=== PATIENT | female | born 1955 | race Caucasian/White ===

== ENCOUNTER 2024-12-30 15:28 | Outpatient (AMB) | payer OTHER, SELFPAY ==
--- OUTSIDE RECORDS SUMMARY | 2024-06-03 06:15 | XMS_ITS ---
Author Organization [facility] Address [address] [place] [address] Care Team Providers Care Money Counter Name Role Phone LAURENT RICKS Primary Care Provider Ge Roberts Unavailable [phone] REASON FOR VISIT 1 week BP Encounters Encounter Location Date Provider Diagnosis [facility] [address] [address] 06/03/2024 Ge Roberts Plan Of Treatment Next Appt Details Provider Name:Sarah Wood, [place] 07/25/2024 11:30:00 AM, [address] [address], [place], [address], Progress Notes * Brittaney WEBEROB:[birth year] (69 yo M)Acc No.[id number]:06/03/2024 Progress Notes Patient: Eneida NANCE Appointment Provider: Betsy Roberts :1955 A ge:68 Y S ex:Male Date:06/03/2024 Phone: Address:[address] [place] [address], [address] [place] [address] Pcp:LAURENT RICKS Subjective: * Chief Complaints: * 1 . 1 week BP. * Medical History: Objective: * Vitals: Assessment: Plan: * Treatment: * Images: * Electronic signature of Remi Roberts PA-C on 12/30/2024 at 03:30 PM EDT Sign off status: Pending * Appointment Provider: Betsy Roberts Date: 1 08/04/2023 Generated for Arthur ernst/Krystin/eTransmitting on: 0 12/30/2024 03:30 PM EDT
--- OUTSIDE RECORDS SUMMARY | 2024-12-30 15:31 | XMS_ITS | Clinical Summary ---
Author Organization [facility] Address [address] [place] [address] Phone Care Team Providers Care Balance Wheel Arm Burnisher Name Role Phone Maykel Lanre Owen MD Primary Care Provider [phone] Allergies Active Allergy Reactions Criticality Noted Date Comments Codeine Low 02/14/2024 Fentanyl Anaphylaxis High 09/22/2015 Morphine Low 09/22/2015 Penicillins 11/16/2015 Reaction not mentioned Medications butalbital-acet aminophen-caffe ine-codeine (FIORICET WITH CODEINE) [id number] mg per capsule Take 1 capsule by mouth every 4 (four) hours. Active DULoxetine (CYMBALTA) [address] capsule Take 1 capsule (60 mg total) by mouth 1 (one) time each day. Active omeprazole (PriLOSEC) [address] capsule Take 1 capsule (20 mg total) by mouth 1 (one) time each day. 6 Active pregabalin (LYRICA) 100 mg capsule Take 1 capsule (100 mg total) by mouth 1 (one) time each day. 4 Active traZODone (DESYREL) 50 mg tablet Take 2 tablets (100 mg total) by mouth at bedtime. 6 Active lisinopriL (PRINIVIL,ZESTR IL) 5 mg tablet Take 2 tablets (10 mg total) by mouth 1 (one) time each day. for 30 days 4 Active guaiFENesin (MUCINEX) 600 mg 12 hr tablet Take 1 tablet (600 mg total) by mouth every 12 (twelve) hours. Do not crush, chew, or split. 60 each 4 05/20/20 25 Active ipratropium (ATROVENT) 0.02 % nebulizer solution Take 2.5 mL (0.5 mg total) by nebulization every 6 (six) hours if needed (wheeze). 75 mL 4 05/20/20 25 Active sucralfate (CARAFATE) 1 gram tablet Take 1 tablet (1 g total) by mouth 4 (four) times a day (before meals and nightly). 120 each 4 05/20/20 25 Active albuterol HFA (ProAir HFA) 90 mcg/actuation inhaler Inhale 2 puffs by mouth every 4 (four) hours if needed for wheezing or shortness of breath. 8.5 g 4 05/20/20 25 Active albuterol 2.5 mg /3 mL (0.083 %) nebulizer solution Take 3 mL (2.5 mg total) by nebulization every 6 (six) hours if needed for wheezing or shortness of breath. 60 each 4 05/20/20 25 Active fluticasone propion-salmete roL (ADVAIR DISKUS) 100-50 mcg/dose diskus inhaler Inhale 1 puff by mouth 2 (two) times a day. Rinse mouth with water after use to reduce aftertaste and incidence of candidiasis. Do not swallow. 1 each 4 05/20/20 25 Active Active Problems Problem Noted Date Diagnosed Date Pneumonia due to infectious organism, unspecified laterality, unspecified part of lung 05/17/2024 Resolved Problems Problem Noted Date Diagnosed Date Resolved Date Acute respiratory failure wi th hypoxia (CMS/HCC V24, CMS/HCC V28) 05/20/2024 05/20/2024 Surgical History Surgery Date Site/Laterality Comments TONSILLECTOMY CHOLECYSTECTOMY BRAIN SURGERY Medical History Medical History Date Comments COPD (chronic obstructive pulmonary disease) (CM S/HCC V24, CMS/HCC V28) Cerebral aneurysm Hypertension Depression Asthma Social History Tobacco Use Types Packs/Day Years Used Date Smoking Tobacco: Never Smokeless Tobacco: Never Interpersonal Safety Answer Date Record ed Physical Abuse 05/19/2024 Verbal Abuse 05/19/2024 Comments Unknown Sex and Gender Information Value Date Recorded Sex Assigned at Not on file Legal Sex Female 2:42 AM EST Gender Identity Not on file Sexual Orientation Not on file Obstetrics History Last Filed Vital Signs Vital Sign [place] Time Taken Comments Blood Pressure 152/101 05/20/2024 7:44 AM EST Pulse 81 05/20/2024 7:44 AM EST Temperature 36.9 C (98.4 F) 05/20/2024 7:44 AM EST Respiratory Rate 16 05/20/2024 7:44 AM EST Oxygen Saturation 95% 05/20/2024 7:44 AM EST Inhaled Oxygen Concentration - - Weight 49.9 kg (110 lb) 05/17/2024 2:45 PM EST Height 149.9 cm (4' 11 ) 05/17/2024 2:45 PM EST Body Mass Index 22.22 05/17/2024 2:45 PM EST Plan of Treatment Health Maintenance Due Date Last Done Comments Breast Cancer Screening 1955 DTaP,Tdap,and Td Vaccines (1 - Tdap) 1976 Pneumococcal Vaccine: 50+ Years (1 of 2 - PCV) 1976 Zoster Vaccines (1 of 2) 12/17/2007 RSV Immunization Adult Patients (1 - Risk 60-74 years 1-dose series) 2017 COVID-19 Vaccine ( - season) 2024 Colorectal Cancer Screening: Colonoscopy 03/16/2024 Hepatitis C Screening 03/16/2024 Lung Cancer Screening (Low Dose CT) 03/16/2024 Medicare Annual Wellness Visit 03/16/2024 Osteoporosis Screening (Bone Density Screening) 03/16/2024 Social Influencers of Health Screening 03/16/2024 Depression Screening 06/09/2024 Influenza Vaccine (#1) 2025 Falls Risk Assessment 05/20/2025 05/20/2024 Hypertension/CHF/CAD Annual BMP Blood Test 11/03/2025 11/03/2024, 05/20/2024, 05/18/2024, Additional history exists Cholesterol Screening (Lipid Panel) 11/03/2029 11/03/2024 HIB Vaccines Aged Out No longer eligi ble based on patient's age to complete this topic HPV Vaccines Aged Out No longer eligi ble based on patient's age to complete this topic Hepatitis A Vaccines Aged Out No long er eligible based on patient's age to complete this topic Hepatitis B Vaccines Aged Out No long er eligible based on patient's age to complete this topic IPV Vaccines Aged Out No longer eligi ble based on patient's age to complete this topic MMR Vaccines Aged Out No longer eligi ble based on patient's age to complete this topic Meningococcal ACWY Vaccine Aged Out N o longer eligible based on patient's age to complete this topic Meningococcal B Vaccine Aged Out No l onger eligible based on patient's age to complete this topic RSV Immunization Patients Under 20 months Aged Out No longer eligible based on patient's age to complete this topic Varicella Vaccines Aged Out No longer eligible based on patient's age to complete this topic Procedures Procedure Name Priority Date/Time Associated Diagnosis Comments MICROALBUMIN CREATININE URINE RATIO Routine 11/03/2024 9:45 AM EDT Essential hypertension, malignant LIPID PANEL WITH REFLEX TO DIRECT LDL Routine 11/03/2024 9:45 AM EDT Essential hypertension, malignant COMPREHENSIVE METABOLIC PANEL Routine 11/03/2024 9:45 AM EDT Essential hypertension, malignant from Last 3 Months Results * Lipid panel with reflex to direct LDL (11/03/2024 9:45 AM EDT) Cholesterol 165 0 - 200 mg/dL LAB CHEMISTRY METHOD 11/03/2024 6:30 PM EDT [facility] Triglycerides 104 0 - 150 mg/dL LAB CHEMISTRY METHOD 11/03/2024 6:30 PM EDT [facility] HDL 52 >=40 mg/dL LAB CHEMISTRY METHOD 11/03/2024 6:30 PM EDT [facility] LDL Calculated 92 0 - 100 mg/dL LAB CHEMISTRY METHOD 11/03/2024 6:30 PM [facility] VLDL Cholesterol Dejon 20.8 mg/dL LAB CHEMISTRY METHOD 11/03/2024 6:30 PM EDT [facility] Non HDL Chol. (LDL+VLDL) 113 <145 mg/dL LAB CHEMISTRY METHOD 11/03/2024 6:30 PM EDT [facility] Chol/HDL Ratio 3.2 0.0 - 4.4 LAB CHEMISTRY METHOD 11/03/2024 6:30 PM EDT [facility] Blood Venous blood specimen / Unknown Venipuncture / Unknown 11/03/2024 9:45 AM EDT 11/03/2024 9:45 AM EDT us Sarah Wood MD LAB BLOOD ORDERABLES Final Resul t Performing Organization Address [facility]/ZIP Co de Phone Number [facility] [address] [place] [address], [place] [phone] * Microalbumin creatinine urine ratio (11/03/2024 9:45 AM EDT) Creatinine, Urine 187.0 mg/dL LAB CHEMISTRY METHOD 11/03/2024 9:28 PM EDT [facility] Microalb, Ur 13.3 0.0 - 29.0 mg/L LAB CHEMISTRY METHOD 11/03/2024 9:28 PM EDT [facility] Microalb/Creat Ratio 7 <30 mg/g creat LAB CHEMISTRY METHOD 11/03/2024 9:28 PM EDT [facility] Urine Urine specimen obtained by clean catch procedure / Unknown Non-blood Collection / Unknown 11/03/2024 9:45 AM EDT 11/03/2024 9:45 AM EDT us Sarah Wood MD LAB URINE ORDERABLES Final Resul t Performing Organization Address [facility]/ZIP Co de Phone Number [facility] [address] [place] [address], [place] [phone] * Comprehensive metabolic panel (11/03/2024 9:45 AM EDT) Sodium 138 133 - 145 mmol/L LAB CHEMISTRY METHOD 11/03/2024 6:30 PM [facility] Potassium 3.7 3.5 - 5.5 mmol/L LAB CHEMISTRY METHOD 11/03/2024 6:30 PM [facility] Chloride 103 96 - 110 mmol/L LAB CHEMISTRY METHOD 11/03/2024 6:30 PM [facility] CO2 29 21 - 32 mmol/L LAB CHEMISTRY METHOD 11/03/2024 6:30 PM [facility] Anion Gap 6 3 - 11 LAB CHEMISTRY METHOD 11/03/2024 6:30 PM [facility] Glucose 98 70 - 100 mg/dL LAB CHEMISTRY METHOD 11/03/2024 6:30 PM [facility] BUN 11 5 - 25 mg/dL LAB CHEMISTRY METHOD 11/03/2024 6:30 PM [facility] Creatinine 0.83 0.50 - 1.10 mg/dL LAB CHEMISTRY METHOD 11/03/2024 6:30 PM [facility] eGFR 78 >=60 mL/min/1. 73m2 LAB CHEMISTRY METHOD 11/03/2024 6:30 PM [facility] Comment:Calculation based on the Chronic Kidney Disease Epidemiology Collaboration (CKD-EPI) equation refit without adjustment for race. BUN/Creatinine Ratio 13.3 LAB CHEMISTRY METHOD 11/03/2024 6:30 PM [facility] Calcium 8.9 8.5 - 10.5 mg/dL LAB CHEMISTRY METHOD 11/03/2024 6:30 PM [facility] AST (SGOT) 15 10 - 42 unit/L LAB CHEMISTRY METHOD 11/03/2024 6:30 PM [facility] ALT (SGPT) 21 10 - 60 unit/L LAB CHEMISTRY METHOD 11/03/2024 6:30 PM [facility] Alkaline Phosphatase 83 42 - 121 unit/L LAB CHEMISTRY METHOD 11/03/2024 6:30 PM EDT [facility] Total Protein 6.7 6.0 - 8.0 g/dL LAB CHEMISTRY METHOD 11/03/2024 6:30 PM EDT [facility] Albumin 4.0 3.2 - 5.0 g/dL LAB CHEMISTRY METHOD 11/03/2024 6:30 PM EDT [facility] Total Bilirubin 0.3 0.0 - 1.4 mg/dL LAB CHEMISTRY METHOD 11/03/2024 6:30 PM EDT [facility] Blood Venous blood specimen / Unknown Venipuncture / Unknown 11/03/2024 9:45 AM EDT 11/03/2024 9:45 AM EDT us Sarah Wood MD LAB BLOOD ORDERABLES Final Resul t [facility] [address] [place] [address], [place] [phone] from Last 3 Months Insurance [place]ICA[place] - [place] [employer] MEDICARE ADVANTAGE MEDICARE MEDICAID OOS RONALDO Advance Directives * Full Code - Default (Latest Code Status on File) Date Activated Date Inactivated Comments 05/17/2024 9:36 PM 05/20/2024 3:57 PM This is ord er is used when code status has not been discussed with the patient, or code status is otherwise unknown/unconfirmed To update the patient's code status, place a code status order. Do not modify or discontinue any currently active code status orders. Care Teams Balance Wheel Arm Burnisher Relationship Specialty Start Date End Date Lanre Brar MD [address] [place] [address] PCP - General Internal Medicine 05/17/24
--- OUTSIDE RECORDS SUMMARY | 2024-12-30 15:31 | XMS_ITS ---
Author Name [facility] Organization Unknown Care Team Organization Name Specialty Phone Email Start Date End [facility] 08/26/2024 025
--- NOTE | 2024-12-30 15:51 | MHC.OFFVIS ---
Intake Visit Reasons: Seizures disorders / Migraine HPI Comments Details: 69 years old right-handed woman with hearing impairment with some congenital etiology who probably suffered from chronic headaches. She said that she used to see a neurologist in [place] and was prescribed Fioricet and Zomig. At some point she moved to [place] and said that in [facility] in [place] she had treatment for cerebral aneurysm and had stenting done. I reviewed her CAT scan of brain for [facility] done in May of 2024 that revealed a right intracavernous carotid stent. There was no sign of any treated or coiled aneurysms. Symptom rodriguez, her main issue was headaches. She said that headaches were happening few times a week and each time was lasting for a day or 2. Pain was in different areas of the head. Review of Systems Const Details: Constitutional:?No fever, chills, fatigue, weight loss, or night sweats. HEENT:?No vision changes, nasal congestion, sore throat. Complain of hearing loss bilaterally Cardiovascular:?No chest pain, palpitations, orthopnea, PND, or leg swelling. Respiratory:?No cough, shortness of breath, wheezing, or hemoptysis. Gastrointestinal:?No nausea, vomiting, abdominal pain, diarrhea, or constipation. Genitourinary:?No dysuria, frequency, incontinence, or hematuria. Musculoskeletal:?No joint pain, stiffness, weakness, or muscle aches. Neurological:?No dizziness, syncope, seizures, numbness, tingling, weakness, tremors, memory loss. Complain of frequent headaches Psychiatric:?No anxiety, depression, mood swings, sleep disturbance, or hallucinations. Endocrine:?No heat/cold intolerance, polydipsia, polyuria, or hair/skin changes. Hematologic/Lymphatic:?No easy bruising, bleeding, or lymphadenopathy. Integumentary (Skin):?No rash, lesions, itching, or color changes. Allergic/Immunologic:?No seasonal allergies, hives, or recurrent infections. Physical Exam Neuro Other: Mental Status: Alert and oriented to person, place, and time. Normal attention. Normal spontaneous speech, fluency, and comprehension. No obvious issues with mood and memory. Affect is appropriate. Cranial Nerves: CN II: Visual call full to confrontation, visual acuity intact. CN III, IV, : Pupils equal, round, reactive to light and accommodation. Extraocular movements are normal. CN V: Facial sensation is normal. CN VII: Facial movements symmetrical. CN VIII: Hearing is bilaterally decreased CN IX, X: Palate elevates symmetrically. CN XI: Shoulder shrug and head turn symmetrical. CN XII: Tongue midline without atrophy or fasciculations. Motor: Deep tendon reflexes are 1+. Plantars are flexor. Coordination: [id number] and [id number] testing normal. No dysmetria. Gait and Station: No obvious gait abnormality. No ataxia or instability. Extrapyramidal: Full facial expressions and blinking. No rigidity. Movements are appropriate with no tremor or abnormality. Speech: Normal; no dysarthria or tremor. Assessment & Plan Assessment & Plan (1) Intracranial carotid stenosis: Code(s): I65.29 - Occlusion and stenosis of unspecified carotid artery Category: Medical Qualifiers: Laterality: right Qualified Code(s): I65.21 - Occlusion and stenosis of right carotid artery (2) Migraine without aura: Code(s): G43.009 - Migraine without aura, not intractable, without status migrainosus Category: Medical Qualifiers: Status migrainosus presence: without status migrainosus Intractability: not intractable Qualified Code(s): G43.009 - Migraine without aura, not intractable, without status migrainosus (3) Deafness: Code(s): H91.90 - Unspecified hearing loss, unspecified ear Category: Medical Qualifiers: Laterality: bilateral Qualified Code(s): H91.93 - Unspecified hearing loss, bilateral Plan Impression: 1. Reported history of cerebral aneurysm though I do not have any records to corroborate her story and CAT scan of brain done in May of 2024 at [facility] did not reveal any uncoiled or coiled aneurysm. 2. 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 Again she did not have records and she could not tell me what prompted this treatment. 3. Chronic migraine without aura and 4. Hearing impairment probably from some congenital etiology Recommendations: 1. Baby aspirin daily 2. Topiramate 25mg one at bedtime for headaches Medications: New topiramate 25 mg PO DAILY 90 tabs 0RF Coding Level of Care Code Tele New Pt Level 4 (78474) Diagnoses Stenosis of intracranial portions of right internal carotid artery I65.21 Laterality: right Migraine without aura and without status migrainosus, not intractable G43.009 Status migrainosus presence: without status migrainosus Intractability: not intractable Bilateral deafness H91.93 Laterality: bilateral
== END 2024-12-30 16:19 | disposition home or self-care (01) ==
LOC: HO.HSM 15:29
PROVIDERS: PCP Hospitalist; Visit Provider Psychiatry & Neurology Neurology
DX: I65.21 Occlusion and stenosis of right carotid artery (principal); G43.009 Migraine without aura, not intractable, without status migrainosus; H91.93 Unspecified hearing loss, bilateral
CPT/HCPCS: 99204

== ENCOUNTER → 2024-12-30 15:28 | Outpatient (BNVA) | payer OTHER, SELFPAY | PROVIDERS: PCP Hospitalist; Visit Provider Psychiatry & Neurology Neurology | DX: I65.21 Occlusion and stenosis of right carotid artery (principal); G43.709 Chronic migraine without aura, not intractable, without status migrainosus; H91.93 Unspecified hearing loss, bilateral; Z98.61 Coronary angioplasty status | CPT/HCPCS: 99202 ==

== ENCOUNTER 2025-01-27 07:48 | Outpatient (REF) | payer OTHER, SELFPAY ==
--- OUTSIDE RECORDS SUMMARY | 2024-06-03 06:15 | XMS_ITS ---
Author Organization [facility] Address [address] [place] [id number] Care Team Providers Care Scientific Glass Blower Name Role Phone LAURENT RICKS Primary Care Provider Ge Roberts Unavailable [phone] REASON FOR VISIT 1 week BP Encounters Encounter Location Date Provider Diagnosis [facility] [address] [address] 06/03/2024 Ge Roberts Plan Of Treatment Next Appt Details Provider Name:Sarah Wood, [place] 07/25/2024 11:30:00 AM, [address] [address], [place], [address], Progress Notes * Brittaney WEBEROB:[birth year] (69 yo M)Acc No.[id number]:06/03/2024 Progress Notes Patient: Eneida NANCE Appointment Provider: Betsy Roberts :1955 A ge:68 Y S ex:Male Date:06/03/2024 Phone: Address:[address] [place] [address], [address] [place] [address] Pcp:LAURENT RICKS Subjective: * Chief Complaints: * 1 . 1 week BP. * Medical History: Objective: * Vitals: Assessment: Plan: * Treatment: * Images: * Electronic signature of Remi Roberts PA-C on 01/27/2025 at 07:53 AM EDT Sign off status: Pending * Appointment Provider: Betsy Roberts Date: 1 08/04/2023 Generated for Arthur ernst/Krystin/eTransmitting on: 0 01/27/2025 07:53 AM EDT
--- NOTE | ~2025-01-27 | CT_ITS ---
CLINICAL HISTORY: I67.1 - Cerebral aneurysm, nonruptured CT Head without contrast. CT angiography head and neck with contrast. 3D Postprocessing. Comparison: None provided Findings: HEAD CT: No intra-axial mass, midline shift, hydrocephalus, or acute hemorrhage. Pojr-kq-nzqgfrop cerebral hemispheric white matter hypodensities likely due to age-related small-vessel ischemic changes. Small left maxillary sinus polyp/retention cyst. Chronic anteroinferior nasal septal defect. The orbits are within normal limits. No skull fracture. HEAD AND NECK CTA: Patent stent at level of cavernous portion of the right ICA. Tortuous bilateral cervical ICS. Mild partial ectasia of the right cervical ICA. Relatively attenuated appearance of the left PICA may be congenital or due to age-indeterminate stenosis. Correlate clinically. Otherwise no evidence of significant arterial stenosis, aneurysm, AVM or dissection. atent dural venous sinuses. No evidence of abnormal intracranial enhancement. The visualized thyroid gland is unremarkable. No cervical mass or fluid collection. 11 mm cyst versus/bulla in the right lung apex. Spinal degenerative changes. No acute fracture. IMPRESSION: 1. Unremarkable head CT. 2. Patent stent at level of cavernous portion of the right ICA. Tortuous bilateral cervical ICS. Mild partial ectasia of the right cervical ICA. Relatively attenuated appearance of the left PICA may be congenital or due to age-indeterminate stenosis. Correlate clinically. Otherwise no evidence of significant arterial stenosis, aneurysm, AVM or dissection. This document has been electronically signed by: Yeimi Bazan MD on 01/28/2025 13:32:45
--- OUTSIDE RECORDS SUMMARY | 2025-01-27 07:54 | XMS_ITS | Clinical Summary ---
Author Organization [facility] Address [address] [place] [address] Phone Care Team Providers Care Taker Off Braker Machine Name Role Phone Maykel Lanre Owen MD Primary Care Provider [phone] Allergies Active Allergy Reactions Criticality Noted Date Comments Codeine Low 02/14/2024 Fentanyl Anaphylaxis High 09/22/2015 Morphine Low 09/22/2015 Penicillins 11/16/2015 Reaction not mentioned Medications butalbital-acet aminophen-caffe ine-codeine (FIORICET WITH CODEINE) 16-784-42-30 mg per capsule Take 1 capsule by [...] LAB CHEMISTRY METHOD 11/03/2024 6:30 PM EDT [facility] Triglycerides 104 0 - 150 mg/dL LAB CHEMISTRY METHOD 11/03/2024 6:30 PM EDT [facility] HDL 52 >=40 mg/dL LAB CHEMISTRY METHOD 11/03/2024 6:30 PM EDT [facility] LDL Calculated 92 0 - 100 mg/dL LAB CHEMISTRY METHOD 11/03/2024 6:30 PM [facility] VLDL Cholesterol Dejon 20.8 mg/dL LAB CHEMISTRY METHOD 11/03/2024 6:30 PM EDT [facility] Non HDL Chol. (LDL+VLDL) 113 <145 mg/dL LAB CHEMISTRY METHOD 11/03/2024 6:30 PM EDT [facility] Chol/HDL Ratio 3.2 0.0 - 4.4 LAB CHEMISTRY METHOD 11/03/2024 6:30 PM EDT [facility] Blood Venous blood specimen / Unknown Venipuncture / Unknown 11/03/2024 9:45 AM EDT 11/03/2024 9:45 AM EDT us Sarah Wood MD LAB BLOOD ORDERABLES Final Resul t Performing Organization Address [facility]/ZIP Co de Phone Number [facility] [address] [place] [address], [place] [phone] * Microalbumin creatinine urine ratio (11/03/2024 9:45 AM EDT) Creatinine, Urine 187.0 mg/dL LAB CHEMISTRY METHOD 11/03/2024 9:28 PM EDT [facility] Microalb, Ur 13.3 0.0 - 29.0 mg/L LAB CHEMISTRY METHOD 11/03/2024 9:28 PM EDT [facility] Microalb/Creat Ratio 7 <30 mg/g creat LAB CHEMISTRY METHOD 11/03/2024 9:28 PM EDT [facility] Urine Urine specimen obtained by clean catch procedure / Unknown Non-blood Collection / Unknown 11/03/2024 9:45 AM EDT 11/03/2024 9:45 AM EDT us Sarah Wood MD LAB URINE ORDERABLES Final Resul t Performing Organization Address [facility]/ZIP Co de Phone Number [facility] [address] [place] [address], [place] [phone] * Comprehensive metabolic panel (11/03/2024 9:45 AM EDT) Sodium 138 133 - 145 mmol/L LAB CHEMISTRY METHOD 11/03/2024 6:30 PM [facility] Potassium 3.7 3.5 - 5.5 mmol/L LAB CHEMISTRY METHOD 11/03/2024 6:30 PM [facility] Chloride 103 96 - 110 mmol/L LAB CHEMISTRY METHOD 11/03/2024 6:30 PM [facility] CO2 29 21 - 32 mmol/L LAB CHEMISTRY METHOD 11/03/2024 6:30 PM [facility] Anion Gap 6 3 - 11 LAB CHEMISTRY METHOD 11/03/2024 6:30 PM [facility] Glucose 98 70 - 100 mg/dL LAB CHEMISTRY METHOD 11/03/2024 6:30 PM [facility] BUN 11 5 - 25 mg/dL LAB CHEMISTRY METHOD 11/03/2024 6:30 PM [facility] Creatinine 0.83 0.50 - 1.10 mg/dL LAB CHEMISTRY METHOD 11/03/2024 6:30 PM [facility] eGFR 78 >=60 mL/min/1. 73m2 LAB CHEMISTRY METHOD 11/03/2024 6:30 PM [facility] Comment:Calculation based on the Chronic Kidney Disease Epidemiology Collaboration (CKD-EPI) equation refit without adjustment for race. BUN/Creatinine Ratio 13.3 LAB CHEMISTRY METHOD 11/03/2024 6:30 PM [facility] Calcium 8.9 8.5 - 10.5 mg/dL LAB CHEMISTRY METHOD 11/03/2024 6:30 PM [facility] AST (SGOT) 15 10 - 42 unit/L LAB CHEMISTRY METHOD 11/03/2024 6:30 PM [facility] ALT (SGPT) 21 10 - 60 unit/L LAB CHEMISTRY METHOD 11/03/2024 6:30 PM [facility] Alkaline Phosphatase 83 42 - 121 unit/L LAB CHEMISTRY METHOD 11/03/2024 6:30 PM EDT [facility] Total Protein 6.7 6.0 - 8.0 g/dL LAB CHEMISTRY METHOD 11/03/2024 6:30 PM EDT [facility] Albumin 4.0 3.2 - 5.0 g/dL LAB CHEMISTRY METHOD 11/03/2024 6:30 PM EDT [facility] Total Bilirubin 0.3 0.0 - 1.4 mg/dL LAB CHEMISTRY METHOD 11/03/2024 6:30 PM EDT [facility] Blood Venous blood specimen / Unknown Venipuncture / Unknown 11/03/2024 9:45 AM EDT 11/03/2024 9:45 AM EDT us Sraah Wood MD LAB BLOOD ORDERABLES Final Resul t [facility] [address] [place] [address], [place] [phone] from Last 3 Months Insurance MEDICAID - [...] currently active code status orders. Care Teams Taker Off Braker Machine Relationship Specialty Start Date End Date Lanre Brar MD [address] [place] [address] PCP - General Internal Medicine 05/17/24
[2025-01-27] MEDS: iohexoL 350 MG/ML 100 ML INFUS..BTL IV (09:20)
[2025-01-28 11:44] LABS: Creatinine POC 0.7 mg/dL (0.5-1.4); GFR POC > 60
== END 2025-01-27 07:49 | disposition home or self-care (01) ==
LOC: HO.CT 07:48
PROVIDERS: PCP Hospitalist; Visit Provider Psychiatry & Neurology Neurology
DX: I67.1 Cerebral aneurysm, nonruptured (principal)
CPT/HCPCS: 70496; 70498; 82565; Q9967

== ENCOUNTER → 2025-01-27 07:50 | Outpatient (BNV) | payer OTHER, SELFPAY | PROVIDERS: PCP Hospitalist; Visit Provider Radiology Diagnostic Radiology | DX: I67.1 Cerebral aneurysm, nonruptured (principal) | CPT/HCPCS: 70496; 70498 ==

== ENCOUNTER 2025-02-03 12:52 | Outpatient (AMB) | payer OTHER, SELFPAY ==
--- OUTSIDE RECORDS SUMMARY | 2024-06-03 06:15 | XMS_ITS ---
Author Organization [facility] Address [address] [place] [phone] Care Team Providers Care Donor Support Technician Name Role Phone LAURENT RICKS Primary Care Provider Ge Roberts Unavailable [phone] REASON FOR VISIT 1 week BP Encounters Encounter Location Date Provider Diagnosis [facility] [address] [address] 06/03/2024 Ge Roberts Plan Of Treatment Next Appt Details Provider Name:Sarah Wood, [place] 07/25/2024 11:30:00 AM, [address] [address], [place], [address], Progress Notes * Brittaney WEBEROB:[birth year] (69 yo M)Acc No.[id number]:06/03/2024 Progress Notes Patient: Eneida NANCE Appointment Provider: Betsy Roberts :1955 A ge:68 Y S ex:Male Date:06/03/2024 Phone: Address:[address] [place] [address], [address] [place] [address] Pcp:LAURENT RICKS Subjective: * Chief Complaints: * 1 . 1 week BP. * Medical History: Objective: * Vitals: Assessment: Plan: * Treatment: * Images: * Electronic signature of Remi Roberts PA-C on 02/03/2025 at 01:26 PM EDT Sign off status: Pending * Appointment Provider: Betsy Roberts Date: 1 08/04/2023 Generated for Arthur ernst/Krystin/eTransmitting on: 0 02/03/2025 01:26 PM EDT
--- NOTE | 2025-02-03 13:00 | MHC.OFFVIS ---
Intake Visit Reasons: 4 weeks Allergies No Known Allergies Allergy (Verified 01/27/25 07:10) HPI Comments Details: 69 years old right-handed woman with hearing impairment with some congenital etiology who probably suffered from chronic headaches. She said that she used to see a neurologist in [place] and was prescribed Fioricet and Zomig. At some point she moved to [place] and said that in [facility] in [place] she had treatment for cerebral aneurysm and had stenting done. I reviewed her CAT scan of brain for [facility] done in May of 2024 that revealed a right intracavernous carotid stent. There was no sign of any treated or coiled aneurysms. Symptom rodriguez, her main issue was headaches. She said that headaches were happening few times a week and each time was lasting for a day or 2. Pain was in different areas of the head. She is presenting with headaches. She is currently managing her condition with Paramide, which reduces the severity of her headaches over time but does not prevent them later in the day. The headaches are associated with neck pain and worsened by cooler weather. Her history includes migraines and difficulties in understanding the origin of her discomfort, whether it is related to her neck or another condition. Her previous attempts to use medications like Imitrex and Botox have been unsuccessful, and she expresses a desire to try medications such as Zomig, although insurance restrictions limit her use. The patient further inquired about non-addictive management options for her headaches. Additionally, she displays an issue related to stent placement and aspirin allergy, complicating her medication regimen to prevent any potential complications. [facility] Medical History (Updated 02/03/25 @ 13:23 by Lanre Novoa MD) Seizure disorder Migraine without aura Review of Systems Const Details: - Neurologic: Reports persistent headaches, despite medication. Denies waking headaches. - Musculoskeletal: Reports neck pain. - Allergic/Immunologic: Reports a gastric allergy to aspirin. Physical Exam Neuro Other: Mental Status: Alert and oriented to person, place, and time. Normal attention. Normal spontaneous speech, fluency, and comprehension. No obvious issues with mood and memory. Affect is appropriate. Cranial Nerves: CN II: Visual call full to confrontation, visual acuity intact. CN III, IV, : Pupils equal, round, reactive to light and accommodation. Extraocular movements are normal. CN V: Facial sensation is normal. CN VII: Facial movements symmetrical. CN VIII: Hearing intact to bedside conversation is normal. CN IX, X: Palate elevates symmetrically. CN XI: Shoulder shrug and head turn symmetrical. CN XII: Tongue midline without atrophy or fasciculations. Extrapyramidal: Full facial expressions and blinking. No rigidity. Movements are appropriate with no tremor or abnormality. Speech: Normal; no dysarthria or tremor. Assessment & Plan Assessment & Plan (1) Migraine without aura: Code(s): G43.009 - Migraine without aura, not intractable, without status migrainosus Category: Medical Qualifiers: Status migrainosus presence: without status migrainosus Intractability: not intractable Qualified Code(s): G43.009 - Migraine without aura, not intractable, without status migrainosus Plan: The conversation included a detailed review of the treatment options and adjustments for headache management. We discussed the risks of certain medication types, particularly those that are potentially addictive.The necessity of baby aspirin in light of her stent placement was highlighted, suggesting a reduced dosage due to stomach sensitivities. The risks and intolerance to aspirin were further addressed, emphasizing careful management of her treatment plan in light of this allergy. (2) Intracranial carotid stenosis: Comment: [place] [facility] [place]: R intracavernous ICA stent, otherwise OK Code(s): I65.29 - Occlusion and stenosis of unspecified carotid artery Category: Medical Qualifiers: Laterality: right Qualified Code(s): I65.21 - Occlusion and stenosis of right carotid artery (3) Cervical spondyloarthritis: Code(s): M47.812 - Spondylosis without myelopathy or radiculopathy, cervical region Category: Medical Plan Impression: 1. 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 3. Chronic migraine without aura and 4. Hearing impairment probably from some congenital etiology Recommendations: 1. 1/2 baby aspirin daily 2. Topiramate 25mg bid c: Zomig PRN Medications: New zolmitriptan (Zomig) 5 mg orally one a day as needed PRN; do not exceed 2 doses per 24 hrs 10 tabs 5RF migraine headache 30 days Changed From topiramate 25 mg PO DAILY 90 tabs 0RF To topiramate 50 mg (2 x 25 mg) PO DAILY 180 tabs 0RF Coding Level of Care Code Est Pt Level 4 (80575) Diagnoses Migraine without aura and without status migrainosus, not intractable G43.009 Status migrainosus presence: without status migrainosus Intractability: not intractable Stenosis of intracranial portions of right internal carotid artery I65.21 Laterality: right Cervical spondyloarthritis M47.812
--- OUTSIDE RECORDS SUMMARY | 2025-02-03 13:26 | XMS_ITS | Clinical Summary ---
Author Organization [facility] Address [address] [place] [address] Phone Care Team Providers Care Fork Operator Name Role Phone Maykel Lanre Owen MD Primary Care Provider [phone] Allergies Active Allergy Reactions Criticality Noted Date Comments Codeine Low 02/14/2024 Fentanyl Anaphylaxis High 09/22/2015 Morphine Low 09/22/2015 Penicillins 11/16/2015 Reaction not mentioned Medications butalbital-acet aminophen-caffe ine-codeine (FIORICET WITH CODEINE) 14-724-37-30 mg per capsule Take 1 capsule by [...] LAB CHEMISTRY METHOD 11/03/2024 6:30 PM EDT [facility] Triglycerides 104 0 - 150 mg/dL LAB CHEMISTRY METHOD 11/03/2024 6:30 PM EDT [facility] HDL 52 >=40 mg/dL LAB CHEMISTRY METHOD 11/03/2024 6:30 PM EDT [facility] LDL Calculated 92 0 - 100 mg/dL LAB CHEMISTRY METHOD 11/03/2024 6:30 PM [facility] VLDL Cholesterol Dejon 20.8 mg/dL LAB CHEMISTRY METHOD 11/03/2024 6:30 PM EDT [facility] Non HDL Chol. (LDL+VLDL) 113 <145 mg/dL LAB CHEMISTRY METHOD 11/03/2024 6:30 PM EDT [facility] Chol/HDL Ratio 3.2 0.0 - 4.4 LAB CHEMISTRY METHOD 11/03/2024 6:30 PM EDT [facility] Blood Venous blood specimen / Unknown Venipuncture / Unknown 11/03/2024 9:45 AM EDT 11/03/2024 9:45 AM EDT us Sarah Wood MD LAB BLOOD ORDERABLES Final Resul t Performing Organization Address [facility]/ZIP Co de Phone Number [facility] [address] [place] [address], [place] [phone] * Microalbumin creatinine urine ratio (11/03/2024 9:45 AM EDT) Creatinine, Urine 187.0 mg/dL LAB CHEMISTRY METHOD 11/03/2024 9:28 PM EDT [facility] Microalb, Ur 13.3 0.0 - 29.0 mg/L LAB CHEMISTRY METHOD 11/03/2024 9:28 PM EDT [facility] Microalb/Creat Ratio 7 <30 mg/g creat LAB CHEMISTRY METHOD 11/03/2024 9:28 PM EDT [facility] Urine Urine specimen obtained by clean catch procedure / Unknown Non-blood Collection / Unknown 11/03/2024 9:45 AM EDT 11/03/2024 9:45 AM EDT us Sarah Wood MD LAB URINE ORDERABLES Final Resul t Performing Organization Address [facility]/ZIP Co de Phone Number [facility] [address] [place] [address], [place] [phone] * Comprehensive metabolic panel (11/03/2024 9:45 AM [...] LAB CHEMISTRY METHOD 11/03/2024 6:30 PM EDT [facility] Total Protein 6.7 6.0 - 8.0 g/dL LAB CHEMISTRY METHOD 11/03/2024 6:30 PM EDT [facility] Albumin 4.0 3.2 - 5.0 g/dL LAB CHEMISTRY METHOD 11/03/2024 6:30 PM EDT [facility] Total Bilirubin 0.3 0.0 - 1.4 mg/dL LAB CHEMISTRY METHOD 11/03/2024 6:30 PM EDT [facility] Blood Venous blood specimen / Unknown Venipuncture / Unknown 11/03/2024 9:45 AM EDT 11/03/2024 9:45 AM EDT us Sarah Wood MD LAB BLOOD ORDERABLES Final Resul t [facility] [address] [place] [address], [place] [phone] from Last 3 Months Insurance MEDICAID - [...] currently active code status orders. Care Teams Fork Operator Relationship Specialty Start Date End Date Lanre Brar MD [address] [place] [address] PCP - General Internal Medicine 05/17/24
--- OUTSIDE RECORDS SUMMARY | 2025-02-03 13:27 | XMS_ITS | Patient Health Record ---
Author Organization [facility] Address 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 Phone LAURENT RICKS Primary Care Provider Sarah Wood Unavailable [phone] Ge Roberts Unavailable [phone] Allergies Allergen (clinical drug ingredient) Drug/Non Drug Allergy documented on EMR Reaction Allergy Type Onset Date Status codeine Codeine Unknown Drug Allergy Active fentanyl Fentanyl Unknown Drug Allergy Active morphine Morphine Unknown Drug Allergy Active Reason For Referral Reason Please evaluate and treat Diagnosis 1 Fibromyalgia (M79.7) Diagnosis 2 Other chronic pain ( G89.29) Referral Organization [facility] Referring Provider First Name Sarah Referring Provider Last Name Nina Referring Provider Speciality Internal M edicine Referred Provider Specialty Pain Medicin e General Notes Referral faxed to [facility]. Please evaluate and treat.Carlotta Kayla 05/13/2024 04:38:57 PM > Referral Priority Routine Reason please evaluate and treat Diagnosis 1 Chronic obstructive pulmonary disease, unspecified (J44.9) Referral Organization [facility] Referring Provider First Name Ge Referring Provider Last Name Alejandra Referred Provider Specialty Pulmonology General Notes Referral faxed to [facility]. Please contact the patient to schedule.Carlotta Kayla 06/04/2024 08:18:59 AM > Referral Priority Routine Reason seizure disorder and migraines Please evaluate and treat Diagnosis 1 Aneurysm of vertebra l artery (I72.6) Referral Organization [facility] Referring Provider First Name Sarah Referring Provider Last Name Nina Referring Provider Speciality Internal M edicine Referred Provider Specialty Neurology General Notes Appointment set on 3:[address] 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 Referring Provider First Name Sarah Referring Provider Last Name Nina Referring Provider Speciality Internal M edicine Referred Provider Specialty Pain Medicin e General Notes Please call the yayo ent to schedule the appointment, [facility] . Please contact them at [phone], Sheba Bianchi 11/11/2024 04:32:17 PM > Referral Priority Routine Medications Medication SIG (Take, Route, Frequency, Duration) Notes Start Date End Date Status Lisinopril 20 MG TAKE 1 TABLET BY MOUTH EVERY DAY FOR 30 DAYS; Duration: 90 Active Omeprazole 40 MG TAKE 1 CAPSULE 1/2 TO 1 HOUR BEFORE MORNING MEAL ORALLY ONCE A DAY X 30 DAYS; Duration: 90 Active Atorvastatin Calcium 40 MG TAKE 1 TABLET BY MOUTH EVERY DAY FOR 30 DAYS; Duration: 90 Active Nebulizer - as directed DX: J44.9; Duration: 30 days 06/18/2024 Active oxyCODONE-Acetaminoph en 5-325 MG 1 tablet as needed Orally every 8 hrs; Duration: 5 days As needed Partial Fill upon Patient Request 04/28/2024 Not-Taking DULoxetine HCl 60 MG 1 capsule Orally Once a day; Duration: 90 days 04/28/2024 Active Claritin 10 MG 1 tablet Orally Once a day; Duration: 30 days Active Pregabalin 150 MG TAKE 1 CAPSULE BY MOUTH EVERY DAY FOR 30 DAYS; Duration: 30 10/08/2024 Active Fluticasone Propionate 50 MCG/ACT 1 spray in each nostril Nasally Once a day; Duration: 90 days Active Benzonatate 100 MG 1 capsule as needed Orally Three times a day; Duration: 7 days 08/05/2024 Active oxyCODONE-Acetaminoph en 5-325 MG 1 tablet as needed Orally 3 times a day; Duration: 5 days Partial Fill upon Patient Request 11/08/2024 Active traZODone HCl 100 MG TAKE 1 TABLET BY MOUTH EVERY DAY AT BEDTIME; Duration: 90 Active Albuterol Sulfate HFA 108 (90 Base) MCG/ACT INHALE 1 PUFF INTO THE LUNGS EVERY 4 HOURS NEEDED FOR 30 DAYS; Duration: 30 Active Problems Problem Type SNOMED Code ICD Code Onset Dates Problem Status W/U Status Risk Notes Problem Chronic pain (15067462) Other chronic pain (G89.29) Active confirmed Problem Chronic obstructive pulmonary disease (42364643) Chronic obstructive pulmonary disease, unspecified (J44.9) Active confirmed Problem CSG - Chronic superficial gastritis (760702267) Chronic superficial gastritis without bleeding (K29.30) Active confirmed Problem Thoracic spondylosis without myelopathy (714508611) Other spondylosis, thoracolumbar region (M47.895) Active confirmed Problem Fibromyalgia (514389773) Fibromyalgia (M79.7) Active confirmed Problem Vertebral artery aneurysm (736724429) Aneurysm of vertebral artery (I72.6) Active confirmed Problem Essential hypertension (26136176) Essential hypertension (I10) Active confirmed Problem Tobacco dependence (21483189) Tobacco dependence (F17.200) Active confirmed Problem Posttraumatic stress disorder (18833917) PTSD (post-traumatic stress disorder) (F43.10) Active confirmed Vital Signs Heart Rate 86 /min 11/08/2024 Temperature 96.8 degrees Fahrenheit 11/08/2024 Oximetry 97 % 11/08/2024 Blood pressure diastolic 86 mm Hg 11/08/2024 Height 4'10'' in 11/08/2024 Blood pressure systolic 120 mm Hg 11/08/2024 Weight 130.8 lbs 11/08/2024 BMI 27.33 kg/m2 11/08/2024 Encounters Encounter Location Date Provider Diagnosis [address] [address] [facility] [address] [address] [facility] Annual physical exam Z00.00 ; Fibromyalgia M79.7 ; Chronic depression F32.A ; PTSD (post-traumatic stress disorder) F43.10 ; Other chronic pain G89.29 ; Low back pain, unspecified M54.50 ; Tobacco dependence F17.200 ; Pain, joint, hip, left M25.552 and Essential hypertension I10 [address] [address] 05/25/2024 Ge Roberts Chronic obstructive pulmonary disease, unspecified J44.9 ; Hospital discharge follow-up Z09 ; Pneumonia, unspecified organism J18.9 ; Essential hypertension I10 ; Fibromyalgia M79.7 ; Other chronic pain G89.29 and Chronic superficial gastritis without bleeding K29.30 [facility] [address] [place] [address] 06/10/2024 [place] Fibromyalgia M79.7 ; Essential hypertension I10 ; Chronic depression F32.A and Tobacco dependence F17.[address] [place] [address] 11/08/2024 [place] Aneurysm of vertebra l artery I72.6 ; Muscle spasm of back M62.830 and Other spondylosis, thoracolumbar region M47.[address] [place] [address] 04/16/2024 [place] [facility] [address] [place] [address] 04/28/2024 [place] Fibromyalgia M79.[address] [place] [address] 05/26/[address] [place] [address] 06/04/2024 [facility] Essential hypertensi on I10 [facility] [address] [place] [address] 06/14/[address] [place] [address] 06/18/[address] [place] [address] 06/29/[address] [place] [address] 08/05/2024 [facility] Tobacco dependence F17.[address] [place] [address] 09/10/[address] [place] [address] 10/14/[address] [place] [address] 10/19/[address] [place] [address] 11/02/[address] [place] [address] 11/08/2024 [facility] [address] [place] [address] 11/10/2024 [facility] Nina [address] [place] [address] 11/10/2024 Sarah Loren Assessments Encounter Date Diagnosis (ICD Code) Assessment Notes Treatment Notes Treatment Clinical Notes Section Notes 04/28/2024 Fibromyalgia (ICD-10 - M79.7) 68-year-old lady with history of hypertension hyperlipidemia not on any medications tobacco abuse osteoporosis brain aneurysm chronic back pain is here today for a new patient visit. Plan is as following Hypertension uncontrolled and elevated, patient reports severe left hip pain and back pain most likely contributing to elevated blood pressure and she is also out of medication and is not taking any of her meds. We will start back lisinopril 5 mg daily we will recheck in 1 week and adjust medication accordingly. Patient does not remember what she was taking in the past for her blood pressure control. We will get a basic metabolic panel avoid NSAID therapy as patient is taking a lot of ibuprofen for back pain Hyperlipidemia obtain a lipid profile Fall and left hip pain on exam severe spasms and difficulty flexing the left hip restricted range of motion. Will order an x-ray of the left hip along with the pelvis, pain control with Percocet will give her total prescription of 15 tablets 1 tablet every 8 hours. Tizanidine 2 mg twice a day for spasms patient was also taking Cymbalta and Lyrica in the past which will be renewed Fibromyalgia patient was previously taking Lyrica milligrams daily and also Cymbalta will give her new prescriptions History of osteoporosis we will check vitamin D level and basic CBC she will need screening testing Depression she is feels very frustrated and depressed as she has no medication and no follow-up care. She was taking trazodone 100 mg at night which will be renewed, on her next visit we will obtain an EKG for QTC measurement Seizure disorder patient reports previously she was on medication however that was stopped after her brain aneurysm surgery in 2020 Chronic back pain we will obtain imaging from [facility] as patient states that her previous MRI was done at [facility]. We have discussed with the patient if this is a chronic failed back syndrome she will need a referral to pain clinic as we would not be prescribing long-term opiates Tobacco dependence smoking cessation counseling was done patient was offered Chantix she agreed and will take the prescription. Preventive care measures will be all addressed on the next visit. 04/28/2024 Annual physical exam (ICD-10 - Z00.00) 68-year-old lady with history of hypertension hyperlipidemia not on any medications tobacco abuse osteoporosis brain aneurysm chronic back pain is here today for a new patient visit. Plan is as following Hypertension uncontrolled and elevated, patient reports severe left hip pain and back pain most likely contributing to elevated blood pressure and she is also out of medication and is not taking any of her meds. We will start back lisinopril 5 mg daily we will recheck in 1 week and adjust medication accordingly. Patient does not remember what she was taking in the past for her blood pressure control. We will get a basic metabolic panel avoid NSAID therapy as patient is taking a lot of ibuprofen for back pain Hyperlipidemia obtain a lipid profile Fall and left hip pain on exam severe spasms and difficulty flexing the left hip restricted range of motion. Will order an x-ray of the left hip along with the pelvis, pain control with Percocet will give her total prescription of 15 tablets 1 tablet every 8 hours. Tizanidine 2 mg twice a day for spasms patient was also taking Cymbalta and Lyrica in the past which will be renewed Fibromyalgia patient was previously taking Lyrica milligrams daily and also Cymbalta will give her new prescriptions History of osteoporosis we will check vitamin D level and basic CBC she will need screening testing Depression she is feels very frustrated and depressed as she has no medication and no follow-up care. She was taking trazodone 100 mg at night which will be renewed, on her next visit we will obtain an EKG for QTC measurement Seizure disorder patient reports previously she was on medication however that was stopped after her brain aneurysm surgery in 2020 Chronic back pain we will obtain imaging from [facility] as patient states that her previous MRI was done at [facility]. We have discussed with the patient if this is a chronic failed back syndrome she will need a referral to pain clinic as we would not be prescribing long-term opiates Tobacco dependence smoking cessation counseling was done patient was offered Chantix she agreed and will take the prescription. Preventive care measures will be all addressed on the next visit. 04/28/2024 Fibromyalgia (ICD-10 - M79.7) 05/25/2024 Chronic obstructive pulmonary disease, unspecified (ICD-10 - J44.9) nEeida is a 68-year-old lady has recently moved back to [place] from [place], COPD, she carries a history of brain aneurysm status post stenting in [address] [place] [address] Wilson at [facility], seizure disorder not on any medication for fibromyalgia, PTSD, tobacco dependence, cervical and valvular cancer, hypertension hyperlipidemia who is here today Hospital follow-up. Plan as follows COPD Pneumonia - She is still currently on Z-Darci, prednisone 10 mg daily and she is on albuterol as needed, nebulizing solution as needed, She is also on a combination LABA/ICS. physical examination is unremarkable. Oxygen is 100s% and lungs are clear to auscultation bilateral with good air movements. Continue on the same regimen. I have also ordered x-ray to ensure resolution. She has quit smoking it has been 2 months now. Referred patient to pulmonary Hypertension - Blood pressure is elevated in the office today given 2 separate readings. During previous visit she was started on lisinopril 10 mg. Could also be elevated due to prednisone though I have increased lisinopril to 20 mg Based on comparison with blood pressure Measurements at the hospital as it was also elevated. Advised on reducing salt intake. Increase hydration and exercise. Will check blood pressure in 1 week Off note, GFR was taken at the hospital it was 94 and creatinine of 0.71. No concern. Fibromyalgia - She is currently on pregabalin 100 mg. She states that she has not noticed any improvement. She will be seeing pain management for further management and possible to be on narcotics. I have refilled oxycodone for 5 days only. I have informed patient and made it clear that moving forward we will not be prescribing oxycodone unless there is a signed contract. Otherwise pregabalin can be adjusted by pain management and reevaluate. She agrees with the plan. Gastritis - There is a question of past medical history of gastritis she states that she had the adverse since she was 15 and she is on sucralfate daily and chronically. There is no medical records in file for review as she is still working on getting her papers from her previous PCP given that she was in [place]. I have referred patient to GI for further evaluation. I have rendered the services for this patient under direct supervision of Dr. Ricks, who did not see the patient but was available upon request 05/25/2024 Hospital discharge follow-up (ICD-10 - Z09) Eneida is a 68-year-old lady has recently moved back to [place] from [place], COPD, she carries a history of brain aneurysm status post stenting in [address] [place] [address] Wilson at [facility], seizure disorder not on any medication for fibromyalgia, PTSD, tobacco dependence, cervical and valvular cancer, hypertension hyperlipidemia who is here today Hospital follow-up. Plan as follows COPD Pneumonia - She is still currently on Z-Darci, prednisone 10 mg daily and she is on albuterol as needed, nebulizing solution as needed, She is also on a combination LABA/ICS. physical examination is unremarkable. Oxygen is 100s% and lungs are clear to auscultation bilateral with good air movements. Continue on the same regimen. I have also ordered x-ray to ensure resolution. She has quit smoking it has been 2 months now. Referred patient to pulmonary Hypertension - Blood pressure is elevated in the office today given 2 separate readings. During previous visit she was started on lisinopril 10 mg. Could also be elevated due to prednisone though I have increased lisinopril to 20 mg Based on comparison with blood pressure Measurements at the hospital as it was also elevated. Advised on reducing salt intake. Increase hydration and exercise. Will check blood pressure in 1 week Off note, GFR was taken at the hospital it was 94 and creatinine of 0.71. No concern. Fibromyalgia - She is currently on pregabalin 100 mg. She states that she has not noticed any improvement. She will be seeing pain management for further management and possible to be on narcotics. I have refilled oxycodone for 5 days only. I have informed patient and made it clear that moving forward we will not be prescribing oxycodone unless there is a signed contract. Otherwise pregabalin can be adjusted by pain management and reevaluate. She agrees with the plan. Gastritis - There is a question of past medical history of gastritis she states that she had the adverse since she was 15 and she is on sucralfate daily and chronically. There is no medical records in file for review as she is still working on getting her papers from her previous PCP given that she was in [place]. I have referred patient to GI for further evaluation. I have rendered the services for this patient under direct supervision of Dr. Ricks, who did not see the patient but was available upon request 06/04/2024 Essential hypertension (ICD-10 - I10) 06/10/2024 Fibromyalgia (ICD-10 - M79.7) 68-year-old lady has recently moved back to [place] from [place], COPD, she carries a history of brain aneurysm status post stenting in [address] [place] [address] Wilson at [facility], seizure disorder not on any medicationshe is here today for blood pressure follow-up. Hypertension blood pressure is well controlled today on the goal, blood pressure is 134/80 she is on lisinopril 20 mg daily which she will continue. No new changes will check basic metabolic panel and an albumin creatinine ratio on the next visit Chronic back pain, she needs a refill on duloxetine,60 mg pregabalin 150 mg daily anxiety and depression continue with the current medications, she is not anxious or depressed History of brain aneurysm history of seizure after the stents were placed she is not on any antiseizure medications for many months. She needs a referral to a neurosurgeon which will be given today 06/10/2024 Essential hypertension (ICD-10 - I10) 68-year-old lady has recently moved back to [place] from [place], COPD, she carries a history of brain aneurysm status post stenting in [address] [place] [address] Wilson at [facility], seizure disorder not on any medicationshe is here today for blood pressure follow-up. Hypertension blood pressure is well controlled today on the goal, blood pressure is 134/80 she is on lisinopril 20 mg daily which she will continue. No new changes will check basic metabolic panel and an albumin creatinine ratio on the next visit Chronic back pain, she needs a refill on duloxetine,60 mg pregabalin 150 mg daily anxiety and depression continue with the current medications, she is not anxious or depressed History of brain aneurysm history of seizure after the stents were placed she is not on any antiseizure medications for many months. She needs a referral to a neurosurgeon which will be given today 08/05/2024 Tobacco dependence (ICD-10 - F17.200) 11/08/2024 Muscle spasm of back (ICD-10 - M62.830) 68-year-old lady with history of brain aneurysm status post repair and clip placement in [place], hypertension, tobacco abuse, severe osteoarthritis of the back, history of severe muscle spasms is here today for a follow-up. hypertension better controlled she is on lisinopril 20 mg daily, will continue that no lab work has been done, patient was given basic metabolic panel albumin creatinine ratio 6 she reports she just did them 2 days ago will follow up on the blood work. Hyperlipidemia screening blood work report is pending. Acute on chronic back pain, muscle spasm, cervical spine mid thoracic and lumbar spine chronic pain Will refer her to [facility], as she is asking for pain medications, Percocet. We have explained to the patient that we would not be giving her chronic opiate therapy she will be referred to pain clinic. For now is for severe back pain and inability to get out of bed will give her a total of 5 days worth of Percocet, Percocet 5 mg every 8 hours as needed for severe pain. Seizure disorder patient reports previously she was on medication however that was stopped after her brain aneurysm surgery in 2020, Will refer to neurology as patient is stating that she is getting twitching and sometimes she feels like she is getting absence seizures. History of brain aneurysm status post surgery and clips, patient is supposed to be seeing a neurosurgeon and also to get an MRI of the brain to evaluate for the stents, clipping, she is supposed to be removing them per her neurosurgeon from [place]. We will get an MRI of the brain and then will need a neurosurgery referral 11/08/2024 Aneurysm of vertebral artery (ICD-10 - I72.6) 68-year-old lady with history of brain aneurysm status post repair and clip placement in [place], hypertension, tobacco abuse, severe osteoarthritis of the back, history of severe muscle spasms is here today for a follow-up. hypertension better controlled she is on lisinopril 20 mg daily, will continue that no lab work has been done, patient was given basic metabolic panel albumin creatinine ratio 6 she reports she just did them 2 days ago will follow up on the blood work. Hyperlipidemia screening blood work report is pending. Acute on chronic back pain, muscle spasm, cervical spine mid thoracic and lumbar spine chronic pain Will refer her to [facility], as she is asking for pain medications, Percocet. We have explained to the patient that we would not be giving her chronic opiate therapy she will be referred to pain clinic. For now is for severe back pain and inability to get out of bed will give her a total of 5 days worth of Percocet, Percocet 5 mg every 8 hours as needed for severe pain. Seizure disorder patient reports previously she was on medication however that was stopped after her brain aneurysm surgery in 2020, Will refer to neurology as patient is stating that she is getting twitching and sometimes she feels like she is getting absence seizures. History of brain aneurysm status post surgery and clips, patient is supposed to be seeing a neurosurgeon and also to get an MRI of the brain to evaluate for the stents, clipping, she is supposed to be removing them per her neurosurgeon from [place]. We will get an MRI of the brain and then will need a neurosurgery referral 06/10/2024 Chronic depression (ICD-10 - F32.A) 68-year-old lady has recently moved back to [place] from [place], COPD, she carries a history of brain aneurysm status post stenting in [address] [place] [address] Wilson at [facility], seizure disorder not on any medicationshe is here today for blood pressure follow-up. Hypertension blood pressure is well controlled today on the goal, blood pressure is 134/80 she is on lisinopril 20 mg daily which she will continue. No new changes will check basic metabolic panel and an albumin creatinine ratio on the next visit Chronic back pain, she needs a refill on duloxetine,60 mg pregabalin 150 mg daily anxiety and depression continue with the current medications, she is not anxious or depressed History of brain aneurysm history of seizure after the stents were placed she is not on any antiseizure medications for many months. She needs a referral to a neurosurgeon which will be given today 11/08/2024 Other spondylosis, thoracolumbar region (ICD-10 - M47.895) 68-year-old lady with history of brain aneurysm status post repair and clip placement in [place], hypertension, tobacco abuse, severe osteoarthritis of the back, history of severe muscle spasms is here today for a follow-up. hypertension better controlled she is on lisinopril 20 mg daily, will continue that no lab work has been done, patient was given basic metabolic panel albumin creatinine ratio 6 she reports she just did them 2 days ago will follow up on the blood work. Hyperlipidemia screening blood work report is pending. Acute on chronic back pain, muscle spasm, cervical spine mid thoracic and lumbar spine chronic pain [facility], as she is asking for pain medications, Percocet. We have explained to the patient that we would not be giving her chronic opiate therapy she will be referred to pain clinic. For now is for severe back pain and inability to get out of bed will give her a total of 5 days worth of Percocet, Percocet 5 mg every 8 hours as needed for severe pain. Seizure disorder patient reports previously she was on medication however that was stopped after her brain aneurysm surgery in 2020, Will refer to neurology as patient is stating that she is getting twitching and sometimes she feels like she is getting absence seizures. History of brain aneurysm status post surgery and clips, patient is supposed to be seeing a neurosurgeon and also to get an MRI of the brain to evaluate for the stents, clipping, she is supposed to be removing them per her neurosurgeon from [place]. We will get an MRI of the brain and then will need a neurosurgery referral 05/25/2024 Pneumonia, unspecified organism (ICD-10 - J18.9) Eneida is a 68-year-old lady has recently moved back to [place] from [place], COPD, she carries a history of brain aneurysm status post stenting in [address] [place] [address] Wilson at [facility], seizure disorder not on any medication for fibromyalgia, PTSD, tobacco dependence, cervical and valvular cancer, hypertension hyperlipidemia who is here today Hospital follow-up. Plan as follows COPD Pneumonia - She is still currently on Z-Darci, prednisone 10 mg daily and she is on albuterol as needed, nebulizing solution as needed, She is also on a combination LABA/ICS. physical examination is unremarkable. Oxygen is 100s% and lungs are clear to auscultation bilateral with good air movements. Continue on the same regimen. I have also ordered x-ray to ensure resolution. She has quit smoking it has been 2 months now. Referred patient to pulmonary Hypertension - Blood pressure is elevated in the office today given 2 separate readings. During previous visit she was started on lisinopril 10 mg. Could also be elevated due to prednisone though I have increased lisinopril to 20 mg Based on comparison with blood pressure Measurements at the hospital as it was also elevated. Advised on reducing salt intake. Increase hydration and exercise. Will check blood pressure in 1 week Off note, GFR was taken at the hospital it was 94 and creatinine of 0.71. No concern. Fibromyalgia - She is currently on pregabalin 100 mg. She states that she has not noticed any improvement. She will be seeing pain management for further management and possible to be on narcotics. I have refilled oxycodone for 5 days only. I have informed patient and made it clear that moving forward we will not be prescribing oxycodone unless there is a signed contract. Otherwise pregabalin can be adjusted by pain management and reevaluate. She agrees with the plan. Gastritis - There is a question of past medical history of gastritis she states that she had the adverse since she was 15 and she is on sucralfate daily and chronically. There is no medical records in file for review as she is still working on getting her papers from her previous PCP given that she was in [place]. I have referred patient to GI for further evaluation. I have rendered the services for this patient under direct supervision of Dr. Ricks, who did not see the patient but was available upon request 04/28/2024 Chronic depression (ICD-10 - F32.A) 68-year-old lady with history of hypertension hyperlipidemia not on any medications tobacco abuse osteoporosis brain aneurysm chronic back pain is here today for a new patient visit. Plan is as following Hypertension uncontrolled and elevated, patient reports severe left hip pain and back pain most likely contributing to elevated blood pressure and she is also out of medication and is not taking any of her meds. We will start back lisinopril 5 mg daily we will recheck in 1 week and adjust medication accordingly. Patient does not remember what she was taking in the past for her blood pressure control. We will get a basic metabolic panel avoid NSAID therapy as patient is taking a lot of ibuprofen for back pain Hyperlipidemia obtain a lipid profile Fall and left hip pain on exam severe spasms and difficulty flexing the left hip restricted range of motion. Will order an x-ray of the left hip along with the pelvis, pain control with Percocet will give her total prescription of 15 tablets 1 tablet every 8 hours. Tizanidine 2 mg twice a day for spasms patient was also taking Cymbalta and Lyrica in the past which will be renewed Fibromyalgia patient was previously taking Lyrica milligrams daily and also Cymbalta will give her new prescriptions History of osteoporosis we will check vitamin D level and basic CBC she will need screening testing Depression she is feels very frustrated and depressed as she has no medication and no follow-up care. She was taking trazodone 100 mg at night which will be renewed, on her next visit we will obtain an EKG for QTC measurement Seizure disorder patient reports previously she was on medication however that was stopped after her brain aneurysm surgery in 2020 Chronic back pain we will obtain imaging from [facility] as patient states that her previous MRI was done at [facility]. We have discussed with the patient if this is a chronic failed back syndrome she will need a referral to pain clinic as we would not be prescribing long-term opiates Tobacco dependence smoking cessation counseling was done patient was offered Chantix she agreed and will take the prescription. Preventive care measures will be all addressed on the next visit. 04/28/2024 PTSD (post-traumatic stress disorder) (ICD-10 - F43.10) 68-year-old lady with history of hypertension hyperlipidemia not on any medications tobacco abuse osteoporosis brain aneurysm chronic back pain is here today for a new patient visit. Plan is as following Hypertension uncontrolled and elevated, patient reports severe left hip pain and back pain most likely contributing to elevated blood pressure and she is also out of medication and is not taking any of her meds. We will start back lisinopril 5 mg daily we will recheck in 1 week and adjust medication accordingly. Patient does not remember what she was taking in the past for her blood pressure control. We will get a basic metabolic panel avoid NSAID therapy as patient is taking a lot of ibuprofen for back pain Hyperlipidemia obtain a lipid profile Fall and left hip pain on exam severe spasms and difficulty flexing the left hip restricted range of motion. Will order an x-ray of the left hip along with the pelvis, pain control with Percocet will give her total prescription of 15 tablets 1 tablet every 8 hours. Tizanidine 2 mg twice a day for spasms patient was also taking Cymbalta and Lyrica in the past which will be renewed Fibromyalgia patient was previously taking Lyrica milligrams daily and also Cymbalta will give her new prescriptions History of osteoporosis we will check vitamin D level and basic CBC she will need screening testing Depression she is feels very frustrated and depressed as she has no medication and no follow-up care. She was taking trazodone 100 mg at night which will be renewed, on her next visit we will obtain an EKG for QTC measurement Seizure disorder patient reports previously she was on medication however that was stopped after her brain aneurysm surgery in 2020 Chronic back pain we will obtain imaging from [facility] as patient states that her previous MRI was done at [facility]. We have discussed with the patient if this is a chronic failed back syndrome she will need a referral to pain clinic as we would not be prescribing long-term opiates Tobacco dependence smoking cessation counseling was done patient was offered Chantix she agreed and will take the prescription. Preventive care measures will be all addressed on the next visit. 06/10/2024 Tobacco dependence (ICD-10 - F17.200) 68-year-old lady has recently moved back to [place] from [place], COPD, she carries a history of brain aneurysm status post stenting in [address] [place] [address] Wilson at [facility], seizure disorder not on any medicationshe is here today for blood pressure follow-up. Hypertension blood pressure is well controlled today on the goal, blood pressure is 134/80 she is on lisinopril 20 mg daily which she will continue. No new changes will check basic metabolic panel and an albumin creatinine ratio on the next visit Chronic back pain, she needs a refill on duloxetine,60 mg pregabalin 150 mg daily anxiety and depression continue with the current medications, she is not anxious or depressed History of brain aneurysm history of seizure after the stents were placed she is not on any antiseizure medications for many months. She needs a referral to a neurosurgeon which will be given today 05/25/2024 Essential hypertension (ICD-10 - I10) Eneida is a 68-year-old lady has recently moved back to [place] from [place], COPD, she carries a history of brain aneurysm status post stenting in [address] [place] [address] Wilson at [facility], seizure disorder not on any medication for fibromyalgia, PTSD, tobacco dependence, cervical and valvular cancer, hypertension hyperlipidemia who is here today Hospital follow-up. Plan as follows COPD Pneumonia - She is still currently on Z-Darci, prednisone 10 mg daily and she is on albuterol as needed, nebulizing solution as needed, She is also on a combination LABA/ICS. physical examination is unremarkable. Oxygen is 100s% and lungs are clear to auscultation bilateral with good air movements. Continue on the same regimen. I have also ordered x-ray to ensure resolution. She has quit smoking it has been 2 months now. Referred patient to pulmonary Hypertension - Blood pressure is elevated in the office today given 2 separate readings. During previous visit she was started on lisinopril 10 mg. Could also be elevated due to prednisone though I have increased lisinopril to 20 mg Based on comparison with blood pressure Measurements at the hospital as it was also elevated. Advised on reducing salt intake. Increase hydration and exercise. Will check blood pressure in 1 week Off note, GFR was taken at the hospital it was 94 and creatinine of 0.71. No concern. Fibromyalgia - She is currently on pregabalin 100 mg. She states that she has not noticed any improvement. She will be seeing pain management for further management and possible to be on narcotics. I have refilled oxycodone for 5 days only. I have informed patient and made it clear that moving forward we will not be prescribing oxycodone unless there is a signed contract. Otherwise pregabalin can be adjusted by pain management and reevaluate. She agrees with the plan. Gastritis - There is a question of past medical history of gastritis she states that she had the adverse since she was 15 and she is on sucralfate daily and chronically. There is no medical records in file for review as she is still working on getting her papers from her previous PCP given that she was in [place]. I have referred patient to GI for further evaluation. I have rendered the services for this patient under direct supervision of Dr. Ricks, who did not see the patient but was available upon request 05/25/2024 Fibromyalgia (ICD-10 - M79.7) Eneida is a 68-year-old lady has recently moved back to [place] from [place], COPD, she carries a history of brain aneurysm status post stenting in [address] [place] [address] Wilson at [facility], seizure disorder not on any medication for fibromyalgia, PTSD, tobacco dependence, cervical and valvular cancer, hypertension hyperlipidemia who is here today Hospital follow-up. Plan as follows COPD Pneumonia - She is still currently on Z-Darci, prednisone 10 mg daily and she is on albuterol as needed, nebulizing solution as needed, She is also on a combination LABA/ICS. physical examination is unremarkable. Oxygen is 100s% and lungs are clear to auscultation bilateral with good air movements. Continue on the same regimen. I have also ordered x-ray to ensure resolution. She has quit smoking it has been 2 months now. Referred patient to pulmonary Hypertension - Blood pressure is elevated in the office today given 2 separate readings. During previous visit she was started on lisinopril 10 mg. Could also be elevated due to prednisone though I have increased lisinopril to 20 mg Based on comparison with blood pressure Measurements at the hospital as it was also elevated. Advised on reducing salt intake. Increase hydration and exercise. Will check blood pressure in 1 week Off note, GFR was taken at the hospital it was 94 and creatinine of 0.71. No concern. Fibromyalgia - She is currently on pregabalin 100 mg. She states that she has not noticed any improvement. She will be seeing pain management for further management and possible to be on narcotics. I have refilled oxycodone for 5 days only. I have informed patient and made it clear that moving forward we will not be prescribing oxycodone unless there is a signed contract. Otherwise pregabalin can be adjusted by pain management and reevaluate. She agrees with the plan. Gastritis - There is a question of past medical history of gastritis she states that she had the adverse since she was 15 and she is on sucralfate daily and chronically. There is no medical records in file for review as she is still working on getting her papers from her previous PCP given that she was in [place]. I have referred patient to GI for further evaluation. I have rendered the services for this patient under direct supervision of Dr. Ricks, who did not see the patient but was available upon request 04/28/2024 Other chronic pain (ICD-10 - G89.29) 68-year-old lady with history of hypertension hyperlipidemia not on any medications tobacco abuse osteoporosis brain aneurysm chronic back pain is here today for a new patient visit. Plan is as following Hypertension uncontrolled and elevated, patient reports severe left hip pain and back pain most likely contributing to elevated blood pressure and she is also out of medication and is not taking any of her meds. We will start back lisinopril 5 mg daily we will recheck in 1 week and adjust medication accordingly. Patient does not remember what she was taking in the past for her blood pressure control. We will get a basic metabolic panel avoid NSAID therapy as patient is taking a lot of ibuprofen for back pain Hyperlipidemia obtain a lipid profile Fall and left hip pain on exam severe spasms and difficulty flexing the left hip restricted range of motion. Will order an x-ray of the left hip along with the pelvis, pain control with Percocet will give her total prescription of 15 tablets 1 tablet every 8 hours. Tizanidine 2 mg twice a day for spasms patient was also taking Cymbalta and Lyrica in the past which will be renewed Fibromyalgia patient was previously taking Lyrica milligrams daily and also Cymbalta will give her new prescriptions History of osteoporosis we will check vitamin D level and basic CBC she will need screening testing Depression she is feels very frustrated and depressed as she has no medication and no follow-up care. She was taking trazodone 100 mg at night which will be renewed, on her next visit we will obtain an EKG for QTC measurement Seizure disorder patient reports previously she was on medication however that was stopped after her brain aneurysm surgery in 2020 Chronic back pain we will obtain imaging from [facility] as patient states that her previous MRI was done at [facility]. We have discussed with the patient if this is a chronic failed back syndrome she will need a referral to pain clinic as we would not be prescribing long-term opiates Tobacco dependence smoking cessation counseling was done patient was offered Chantix she agreed and will take the prescription. Preventive care measures will be all addressed on the next visit. 05/25/2024 Other chronic pain (ICD-10 - G89.29) Eneida is a 68-year-old lady has recently moved back to [place] from [place], COPD, she carries a history of brain aneurysm status post stenting in [address] [place] [address] Wilson at [facility], seizure disorder not on any medication for fibromyalgia, PTSD, tobacco dependence, cervical and valvular cancer, hypertension hyperlipidemia who is here today Hospital follow-up. Plan as follows COPD Pneumonia - She is still currently on Z-Darci, prednisone 10 mg daily and she is on albuterol as needed, nebulizing solution as needed, She is also on a combination LABA/ICS. physical examination is unremarkable. Oxygen is 100s% and lungs are clear to auscultation bilateral with good air movements. Continue on the same regimen. I have also ordered x-ray to ensure resolution. She has quit smoking it has been 2 months now. Referred patient to pulmonary Hypertension - Blood pressure is elevated in the office today given 2 separate readings. During previous visit she was started on lisinopril 10 mg. Could also be elevated due to prednisone though I have increased lisinopril to 20 mg Based on comparison with blood pressure Measurements at the hospital as it was also elevated. Advised on reducing salt intake. Increase hydration and exercise. Will check blood pressure in 1 week Off note, GFR was taken at the hospital it was 94 and creatinine of 0.71. No concern. Fibromyalgia - She is currently on pregabalin 100 mg. She states that she has not noticed any improvement. She will be seeing pain management for further management and possible to be on narcotics. I have refilled oxycodone for 5 days only. I have informed patient and made it clear that moving forward we will not be prescribing oxycodone unless there is a signed contract. Otherwise pregabalin can be adjusted by pain management and reevaluate. She agrees with the plan. Gastritis - There is a question of past medical history of gastritis she states that she had the adverse since she was 15 and she is on sucralfate daily and chronically. There is no medical records in file for review as she is still working on getting her papers from her previous PCP given that she was in [place]. I have referred patient to GI for further evaluation. I have rendered the services for this patient under direct supervision of Dr. Ricks, who did not see the patient but was available upon request 04/28/2024 Low back pain, unspecified (ICD-10 - M54.50) 68-year-old lady with history of hypertension hyperlipidemia not on any medications tobacco abuse osteoporosis brain aneurysm chronic back pain is here today for a new patient visit. Plan is as following Hypertension uncontrolled and elevated, patient reports severe left hip pain and back pain most likely contributing to elevated blood pressure and she is also out of medication and is not taking any of her meds. We will start back lisinopril 5 mg daily we will recheck in 1 week and adjust medication accordingly. Patient does not remember what she was taking in the past for her blood pressure control. We will get a basic metabolic panel avoid NSAID therapy as patient is taking a lot of ibuprofen for back pain Hyperlipidemia obtain a lipid profile Fall and left hip pain on exam severe spasms and difficulty flexing the left hip restricted range of motion. Will order an x-ray of the left hip along with the pelvis, pain control with Percocet will give her total prescription of 15 tablets 1 tablet every 8 hours. Tizanidine 2 mg twice a day for spasms patient was also taking Cymbalta and Lyrica in the past which will be renewed Fibromyalgia patient was previously taking Lyrica milligrams daily and also Cymbalta will give her new prescriptions History of osteoporosis we will check vitamin D level and basic CBC she will need screening testing Depression she is feels very frustrated and depressed as she has no medication and no follow-up care. She was taking trazodone 100 mg at night which will be renewed, on her next visit we will obtain an EKG for QTC measurement Seizure disorder patient reports previously she was on medication however that was stopped after her brain aneurysm surgery in 2020 Chronic back pain we will obtain imaging from [facility] as patient states that her previous MRI was done at [facility]. We have discussed with the patient if this is a chronic failed back syndrome she will need a referral to pain clinic as we would not be prescribing long-term opiates Tobacco dependence smoking cessation counseling was done patient was offered Chantix she agreed and will take the prescription. Preventive care measures will be all addressed on the next visit. 04/28/2024 Tobacco dependence (ICD-10 - F17.200) 68-year-old lady with history of hypertension hyperlipidemia not on any medications tobacco abuse osteoporosis brain aneurysm chronic back pain is here today for a new patient visit. Plan is as following Hypertension uncontrolled and elevated, patient reports severe left hip pain and back pain most likely contributing to elevated blood pressure and she is also out of medication and is not taking any of her meds. We will start back lisinopril 5 mg daily we will recheck in 1 week and adjust medication accordingly. Patient does not remember what she was taking in the past for her blood pressure control. We will get a basic metabolic panel avoid NSAID therapy as patient is taking a lot of ibuprofen for back pain Hyperlipidemia obtain a lipid profile Fall and left hip pain on exam severe spasms and difficulty flexing the left hip restricted range of motion. Will order an x-ray of the left hip along with the pelvis, pain control with Percocet will give her total prescription of 15 tablets 1 tablet every 8 hours. Tizanidine 2 mg twice a day for spasms patient was also taking Cymbalta and Lyrica in the past which will be renewed Fibromyalgia patient was previously taking Lyrica milligrams daily and also Cymbalta will give her new prescriptions History of osteoporosis we will check vitamin D level and basic CBC she will need screening testing Depression she is feels very frustrated and depressed as she has no medication and no follow-up care. She was taking trazodone 100 mg at night which will be renewed, on her next visit we will obtain an EKG for QTC measurement Seizure disorder patient reports previously she was on medication however that was stopped after her brain aneurysm surgery in 2020 Chronic back pain we will obtain imaging from [facility] as patient states that her previous MRI was done at [facility]. We have discussed with the patient if this is a chronic failed back syndrome she will need a referral to pain clinic as we would not be prescribing long-term opiates Tobacco dependence smoking cessation counseling was done patient was offered Chantix she agreed and will take the prescription. Preventive care measures will be all addressed on the next visit. 05/25/2024 Chronic superficial gastritis without bleeding (ICD-10 - K29.30) Eneida is a 68-year-old lady has recently moved back to [place] from [place], COPD, she carries a history of brain aneurysm status post stenting in [address] [place] [address] Wilson at [facility], seizure disorder not on any medication for fibromyalgia, PTSD, tobacco dependence, cervical and valvular cancer, hypertension hyperlipidemia who is here today Hospital follow-up. Plan as follows COPD Pneumonia - She is still currently on Z-Darci, prednisone 10 mg daily and she is on albuterol as needed, nebulizing solution as needed, She is also on a combination LABA/ICS. physical examination is unremarkable. Oxygen is 100s% and lungs are clear to auscultation bilateral with good air movements. Continue on the same regimen. I have also ordered x-ray to ensure resolution. She has quit smoking it has been 2 months now. Referred patient to pulmonary Hypertension - Blood pressure is elevated in the office today given 2 separate readings. During previous visit she was started on lisinopril 10 mg. Could also be elevated due to prednisone though I have increased lisinopril to 20 mg Based on comparison with blood pressure Measurements at the hospital as it was also elevated. Advised on reducing salt intake. Increase hydration and exercise. Will check blood pressure in 1 week Off note, GFR was taken at the hospital it was 94 and creatinine of 0.71. No concern. Fibromyalgia - She is currently on pregabalin 100 mg. She states that she has not noticed any improvement. She will be seeing pain management for further management and possible to be on narcotics. I have refilled oxycodone for 5 days only. I have informed patient and made it clear that moving forward we will not be prescribing oxycodone unless there is a signed contract. Otherwise pregabalin can be adjusted by pain management and reevaluate. She agrees with the plan. Gastritis - There is a question of past medical history of gastritis she states that she had the adverse since she was 15 and she is on sucralfate daily and chronically. There is no medical records in file for review as she is still working on getting her papers from her previous PCP given that she was in [place]. I have referred patient to GI for further evaluation. I have rendered the services for this patient under direct supervision of Dr. Ricks, who did not see the patient but was available upon request 04/28/2024 Essential hypertension (ICD-10 - I10) 68-year-old lady with history of hypertension hyperlipidemia not on any medications tobacco abuse osteoporosis brain aneurysm chronic back pain is here today for a new patient visit. Plan is as following Hypertension uncontrolled and elevated, patient reports severe left hip pain and back pain most likely contributing to elevated blood pressure and she is also out of medication and is not taking any of her meds. We will start back lisinopril 5 mg daily we will recheck in 1 week and adjust medication accordingly. Patient does not remember what she was taking in the past for her blood pressure control. We will get a basic metabolic panel avoid NSAID therapy as patient is taking a lot of ibuprofen for back pain Hyperlipidemia obtain a lipid profile Fall and left hip pain on exam severe spasms and difficulty flexing the left hip restricted range of motion. Will order an x-ray of the left hip along with the pelvis, pain control with Percocet will give her total prescription of 15 tablets 1 tablet every 8 hours. Tizanidine 2 mg twice a day for spasms patient was also taking Cymbalta and Lyrica in the past which will be renewed Fibromyalgia patient was previously taking Lyrica milligrams daily and also Cymbalta will give her new prescriptions History of osteoporosis we will check vitamin D level and basic CBC she will need screening testing Depression she is feels very frustrated and depressed as she has no medication and no follow-up care. She was taking trazodone 100 mg at night which will be renewed, on her next visit we will obtain an EKG for QTC measurement Seizure disorder patient reports previously she was on medication however that was stopped after her brain aneurysm surgery in 2020 Chronic back pain we will obtain imaging from [facility] as patient states that her previous MRI was done at [facility]. We have discussed with the patient if this is a chronic failed back syndrome she will need a referral to pain clinic as we would not be prescribing long-term opiates Tobacco dependence smoking cessation counseling was done patient was offered Chantix she agreed and will take the prescription. Preventive care measures will be all addressed on the next visit. 04/28/2024 Pain, joint, hip, left (ICD-10 - M25.552) 68-year-old lady with history of hypertension hyperlipidemia not on any medications tobacco abuse osteoporosis brain aneurysm chronic back pain is here today for a new patient visit. Plan is as following Hypertension uncontrolled and elevated, patient reports severe left hip pain and back pain most likely contributing to elevated blood pressure and she is also out of medication and is not taking any of her meds. We will start back lisinopril 5 mg daily we will recheck in 1 week and adjust medication accordingly. Patient does not remember what she was taking in the past for her blood pressure control. We will get a basic metabolic panel avoid NSAID therapy as patient is taking a lot of ibuprofen for back pain Hyperlipidemia obtain a lipid profile Fall and left hip pain on exam severe spasms and difficulty flexing the left hip restricted range of motion. Will order an x-ray of the left hip along with the pelvis, pain control with Percocet will give her total prescription of 15 tablets 1 tablet every 8 hours. Tizanidine 2 mg twice a day for spasms patient was also taking Cymbalta and Lyrica in the past which will be renewed Fibromyalgia patient was previously taking Lyrica milligrams daily and also Cymbalta will give her new prescriptions History of osteoporosis we will check vitamin D level and basic CBC she will need screening testing Depression she is feels very frustrated and depressed as she has no medication and no follow-up care. She was taking trazodone 100 mg at night which will be renewed, on her next visit we will obtain an EKG for QTC measurement Seizure disorder patient reports previously she was on medication however that was stopped after her brain aneurysm surgery in 2020 Chronic back pain we will obtain imaging from [facility] as patient states that her previous MRI was done at [facility]. We have discussed with the patient if this is a chronic failed back syndrome she will need a referral to pain clinic as we would not be prescribing long-term opiates Tobacco dependence smoking cessation counseling was done patient was offered Chantix she agreed and will take the prescription. Preventive care measures will be all addressed on the next visit. Plan Of Treatment Pending Test Test Name Order Date Liver Function Test (LFT) 04/28/2024 Xray: Chest-Standard Frontal & Lat 05/25 Xray: Hip [id number] 2 Vws 2023 MR Brain W WO 11/08/2024 CBC with Diff, Platelet, [id number] 04/10 Albumin/Creatinine Ratio,[id number] Albumin/Creatinine Ratio,[id number] Lipid Panel With LDL/HDL Ratio-[id number] Lipid Panel With LDL/HDL Ratio-[id number] Comp. Metabolic Panel [id number] 2024 Comp. Metabolic Panel [id number] 2023 Next Appt Details Provider Name:Sarah Wood, 1 07/25/2024 11:30:00 AM, [address] [place] [address], [id number], Insurance Providers Payer Name Payer Address Payer Phone Subscriber Number Group Number Insured Name Patient Relationship to Insured Coverage Start Date Coverage End Date [facility] [address] EM[place] Michel [phone] [id number] Eneida Weber Self - patient is the insured Medical (General) History Medical History History ICD Code hypertension Hyperlipidemia Posttraumatic stress disorder Depression Fibromyalgia Chronic back pain Osteoporosis Depression Seizure disorder History of brain aneurysm status post [facility] Surgical History Surgery Date(Month/Year) status post brain aneurysm stenting in [address] [place] [address] Wilson Seizure disorder not on any medication does not follow with any neurologist Status post hemorrhoidectomy Status post hysterectomy at the age of 30 status post cholecystectomy Status post cervical cancer laser treatm ent Status post colonic polyp removal
== END 2025-02-03 13:27 | disposition home or self-care (01) ==
LOC: HO.HSM 12:53
PROVIDERS: PCP Hospitalist; Visit Provider Psychiatry & Neurology Neurology
DX: G43.009 Migraine without aura, not intractable, without status migrainosus (principal); I65.21 Occlusion and stenosis of right carotid artery; M47.812 Spondylosis without myelopathy or radiculopathy, cervical region
CPT/HCPCS: 99214

== ENCOUNTER → 2025-02-03 12:52 | Outpatient (BNVA) | payer OTHER, SELFPAY | PROVIDERS: PCP Hospitalist; Visit Provider Psychiatry & Neurology Neurology | DX: G43.009 Migraine without aura, not intractable, without status migrainosus (principal); M47.812 Spondylosis without myelopathy or radiculopathy, cervical region; I65.21 Occlusion and stenosis of right carotid artery; H91.93 Unspecified hearing loss, bilateral | CPT/HCPCS: 99212 ==